=== PATIENT | female | born 1955 | race Caucasian/White ===

== ENCOUNTER 2024-02-14 11:27 | Emergency (ER) | payer MEDICARE, OTHER, SELFPAY ==
[2024-02-14] VITALS (9 sets, daily range): BP systolic 129–163; BP diastolic 52–65; PULSE 89–98; RESP 9–16; TEMP 36.6–36.7; O2SAT 94–99; BMI 26.6
--- NOTE | ~2024-02-14 | XR_ITS ---
EXAMINATION: XR WRIST, LEFT CLINICAL INFORMATION: Fall COMPARISON: None available. TECHNIQUE: PA, lateral, and oblique views of the left wrist. FINDINGS: There is a transverse impacted displaced fracture of the left distal radius. The radial shaft is displaced dorsally and radially with respect to the more proximal radial shaft. There is a minimally displaced ulnar styloid fracture. Carpal bones are normal. There is overlying soft tissue swelling. XR/XR wrist LT min 3V IMPRESSION: Left distal radius and ulnar styloid fractures.
--- NOTE | ~2024-02-14 | XR_ITS ---
EXAMINATION: XR WRIST, LEFT CLINICAL INFORMATION: Post reduction, left wrist COMPARISON: Same date at 12:35 PM TECHNIQUE: PA and lateral views of the left wrist. FINDINGS: Cast material is in place. There is improved alignment of the distal radial fracture with decreased volar tilt of the distal radial articular surface. There is persistent impaction at the transverse fracture line with slight radial displacement of the distal fracture fragment as well as loss of radial inclination. Neutral ulnar variance. Ulnar styloid fracture displacement is slightly improved. Bones are osteopenic. 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 Soft tissues are swollen. XR/XR wrist LT 2V IMPRESSION: Improved alignment of the distal radial fracture status post closed reduction and casting.
--- NOTE | 2024-02-14 11:32 | ED.GENADULT ---
HPI - General Adult General Chief complaint: Extremity Injury, Upper Stated complaint: fall inj l wrist Time Seen by Provider: 02/14/24 12:02 Source: patient and family (Brother) Mode of arrival: ambulatory Limitations: no limitations History of Present Illness HPI narrative: This is a 69-year-old female presenting with severe left-sided wrist pain, patient reports she tripped on the sidewalk, fell forward and landed on both her hands, outstretched in front of her. She did not hit her head or lose consciousness. She reports severe left-sided wrist pain and she reports that her left wrist appears distorted. She has not on blood thinners. Denies numbness, tingling. She has fractured her right wrist before however not her left. Patient is right-hand dominant. Denies chest pain, shortness breath, nausea, vomiting, headache, vision changes, dizziness, weakness, preceding symptoms to fall Related Data Previous Rx's ?Medication ?Instructions ?Recorded acetaminophen 650 mg 650 mg PO Q8H PRN pain (scale 02/14/24 tablet,extended release (Tylenol 8 score 4-6) #30 tabs Hour) morphine 15 mg immediate release 15 mg PO Q6H PRN pain 5 days #10 02/14/24 tablet tabs Allergies Allergy/AdvReac Type Severity Reaction Status Date / Time No Known Allergies Allergy Verified 02/14/24 11:35 Review of Systems Review of Systems: Yes all other systems are reviewed and are negative [facility] Past Medical History Attestation statement: The following information was validated with the patient. Source: old records reviewed and nursing notes reviewed Social History Social History Advance Directives: Yes Advance Directives Information Provided: No Advance Directives on File: No Physical Exam ED Vital Signs: Vital Signs - 24 hr 02/14/24 11:29 02/14/24 13:57 02/14/24 14:06 Temperature 97.9 F 97.8 F 97.8 F Pulse Rate 98 92 Respiratory Rate 16 12 Blood Pressure 163/65 H 149/64 H Pulse Oximetry 94 99 Oxygen Delivery Method Room Air Room Air 02/14/24 14:11 02/14/24 14:22 02/14/24 14:25 Temperature 98.0 F Pulse Rate 98 90 89 Respiratory Rate 12 9 L 11 L Blood Pressure 144/58 H 143/58 H 145/61 H Pulse Oximetry 99 98 99 Oxygen Delivery Method Room Air 02/14/24 14:34 Temperature Pulse Rate 91 Respiratory Rate 12 Blood Pressure 129/52 L Pulse Oximetry 95 Oxygen Delivery Method BMI result Body Mass Index 26.6 vss Appearance: Alert.? Oriented X3.? No acute distress.? Head: Normocephalic, atraumatic, no step-offs or deformities Eyes: Pupils equal, round and reactive to light.? ENT: Pharynx normal.? Patent airway Neck: Normal inspection.? Neck supple.? CVS: Normal heart rate and rhythm.? Pulses normal.? Respiratory: No respiratory distress.? Breath sounds normal.? Abdomen: Soft and nontender.? Skin: Skin warm and dry.? Normal skin color.? Normal skin turgor.? Extremities: No lower extremity edema.? 5/5 strength to bilateral upper and lower extremities 2+ radial pulses equal bilateral. Left wrist with dorsal angulation and evident hematoma overlying the dorsal aspect of wrist. Full range of motion to bilateral digits, full range of motion to right wrist, left wrist with limited range of motion secondary to pain. No wrist drop b/l Back: No midline tenderness, no C-spine tenderness, full range of motion, no CVA tenderness bilaterally Neuro: Oriented X 3.? No motor deficit.? No sensory deficit. CN 2-12 intact . Patient ambulating with steady gait normal coordination Course Course Course Narrative: This is an RME: Additional HPI, ROS, PE not included below will be deferred to primary provider. This is a [id number]-female, with hypertension, hyperlipidemia, and presenting to the ER with a complaint of left wrist pain s/p mechanical fall today. Patient states that she tripped and fell onto her outstretched left hand. There is a obvious deformity to her left wrist. Radial pulse palpated. Distal sensation circulation intact. No LOC no head strike. She has not on blood thinners. Further ER evaluation needed. Spoke to charge nurse who located a available bed, patient will be brought back as soon as possible. X-ray will be obtained. Plan: xray left wrist Reevaluation(s) Reevaluation #1: I did share images with ortho recommends reduction and then to place patient in a sugar-tong splint. Time: 12:56 Reevaluation #2: Xray results L distal radius and ulnar stylodid fx to L side. Will do conscious sedation w/ propofol Time: 13:56 Reevaluation #3: X-ray improved alignment of the distal radial fracture status post closed reduction and casting. Patient feeling better. Sling applied to affected extremity. Patient to be discharged home with morphine. She is alert and oriented x4. Tolerating p.o.. at the bedside. Educated patient on diagnosis and treatment plan, answered all question, patient verbalizes understanding. At this time patient will be discharged home, advised to return with new or worsening symptoms. Educated on worrisome signs and symptoms and when to return. At this time I feel comfortable discharge home. Time: 16:07 Medications Administered Discontinued Medications Generic Name Dose Route Start Last Admin Trade Name Opal PRN Reason Stop Dose Admin Morphine Sulfate 4 mg 02/14/24 12:15 02/14/24 13:09 Morphine Sulfate 4 Mg/Ml Cartridge IVPUSH 02/14/24 12:16 4 mg ONCE ONE Administration Protocol Propofol 200 mg 02/14/24 12:14 02/14/24 14:15 Propofol 200 Mg/20 Ml Vial IVPUSH 02/14/24 12:15 75 mg ONCE ONE Administration Medical Decision Making Medical Decision Making MDM Narrative: 69-year-old female presents with left wrist pain status post trip and fall prior to arrival Physical exam significant for ? 5/5 strength to bilateral upper and lower extremities 2+ radial pulses equal bilateral. Left wrist with dorsal angulation and evident hematoma overlying the dorsal aspect of wrist. Full range of motion to bilateral digits, full range of motion to right wrist, left wrist with limited range of motion secondary to pain. No wrist drop b/l History and physical exam concerning for fracture and dislocation of left wrist. No signs of neurovascular compromise or acute threat to limb. No signs of trauma to head, neck, chest, abdomen or pelvis. No evidence of arterial or venous occlusion. Plan at this time imaging basic labs. Patient will likely require conscious sedation for reduction. I did do all the paperwork with patient and she verbalizes understanding of this and gives consent. Written consent will be placed in patient's chart. Differential Diagnosis Differential Diagnoses: The differential diagnosis associated with the presentation includes History and physical exam concerning for fracture and dislocation of left wrist. No signs of neurovascular compromise or acute threat to limb. No signs of trauma to head, neck, chest, abdomen or pelvis. No evidence of arterial or venous occlusion. Admission/Observation Consideration of admission/observation: Escalation of care including admission/observation considered Unlikely Consult Healthcare Provider Management of the patient was discussed with: Plant Production Worker (Ortho) Lab Data [facility] Lab Attestation statement: I reviewed the patient's lab results. 02/14/24 12:51 02/14/24 12:51 Labs: Lab Results 02/14/24 Range/Units 12:51 WBC 8.0 (4.8-10.8) X10*3/uL RBC 4.69 (4.20-5.50) X10*6/uL Hgb 13.4 (12.0-16.0) g/dl Hct 40.8 (37.0-47.0) % MCV 87.0 (80.0-98.0) fL MCH 28.6 (27.0-33.0) pg MCHC 32.8 (31.0-35.0) g/dl RDW 13.0 (11.0-16.0) % Plt Count 343 (160-400) X10*3/uL MPV 9.1 L (9.4-12.3) fL Immature Gran % (Auto) 0.4 (0.0-0.4) % Neut % (Auto) 65.4 (45-73) % Lymph % (Auto) 24.2 (20-40) % [place] % (Auto) 7.0 (2-11) % Eos % (Auto) 2.4 (0-4) % Baso % (Auto) 0.6 (0-2) % Lymph # (Auto) 1.9 (1.2-4.9) X10*3/uL [place] # (Auto) 0.6 (0.1-1.2) X10*3/uL Eos # (Auto) 0.2 (0.0-0.4) X10*3/uL Baso # (Auto) 0.1 (0.0-0.2) X10*3/uL Abs Immat Gran (auto) 0.03 (0.00-0.03) X10*3/uL Absolute Neuts (auto) 5.2 (2.0-8.3) x10*3/uL Absolute Nucleated RBC 0.000 (0.0-0.012) X10*3/uL Nucleated RBC % (auto) 0.0 (0.0-0.2) /100WBC PT 12.7 (11.1-13.3) SEC INR 1.0 (0.9-1.1) Sodium 139 (135-145) mmol/L Potassium 3.8 (3.3-5.1) mmol/L Chloride 106 (96-108) mmol/L Carbon Dioxide 22 (22-29) mmol/L Anion Gap 15 (12-20) BUN 15 (9-16) mg/dL Creatinine 0.76 (0.5-1.4) mg/dL Estim Creat Clear Calc 62.8 Estimated GFR > 60 Random Glucose 115 (60-115) mg/dL Calcium 9.8 (8.4-10.2) mg/dL Total Bilirubin 0.3 (0.0-1.0) mg/dL AST 18 (5-31) U/L ALT 14 (0-31) U/L Alkaline Phosphatase 94 (39-117) U/L Total Protein 8.2 H (6.5-8.0) g/dL Albumin 4.0 (3.5-5.0) g/dL Independent Interpretation I performed an independent interpretation of an: Plain X-Ray (XR/XR wrist LT min 3V IMPRESSION: Left distal radius and ulnar styloid fractures. ) Radiology Impression Discussion of test interpretation with radiology: I have reviewed the radiologist's reading. Independent Historian Clinical information obtained from an independent historian. History obtained from or confirmed by: Other (Brother) Prescription Management I considered prescription management with: Other (Morphine A narcotic has been sent to your pharmacy please take this as prescribed. Do not take more than the prescribed dose. Narcotic medications can cause addiction. Please do not mix them with alcohol. Do not take them while driving or operating machinery. Do not take them with any other raghavendra) Chronic Conditions Patient?s care impacted by: Hypertension Critical Care Time Critical Care Time Critical Care Time: Yes Total Critical Care Time: 60 Attestation: I attest to this time spent taking care of the patient, obtaining history, physical, reviewing labs, imaging, speaking to my attending, specialist or hospitalist. Discharge Plan Discharge Clinical Impression: Fracture of left wrist, Dislocation of left wrist Patient Disposition: Home, Self-Care Instructions: Wrist Injury (ED), Wrist Fracture in Adults (ED) Additional Instructions: Take your medications as prescribed. If you were prescribed antibiotics today, it is important that you take your medication to their entirety, do not skip any doses, do not finish them early. Follow-up with your primary care provider this week. Return to the emergency department with new or worsening symptoms. Such as fevers, chills, chest pain, shortness of breath, nausea, vomiting, dizziness, headache, vision changes, lethargy In case of emergency call 911 Follow up with orthopedics in a day or two. Return with worsening pain, swelling or inability to move fingers. A narcotic has been sent to your pharmacy please take this as prescribed. Do not take more than the prescribed dose. Narcotic medications can cause addiction. Please do not mix them with alcohol. Do not take them while driving or operating machinery. Do not take them with any other narcotics. Do not share them with friends or family. They can cause constipation. Take them only for severe pain. You can take Tylenol as needed for pain with morphine. XR/XR wrist LT min 3V IMPRESSION: Left distal radius and ulnar styloid fractures. XR/XR wrist LT 2V IMPRESSION: Improved alignment of the distal radial fracture status post closed reduction and casting. Prescriptions: New morphine 15 mg tablet 15 mg PO Q6H PRN (Reason: pain) 5 Days Qty: 10 0RF Rx Instructions: Partial Fill upon patient request. acetaminophen [Tylenol 8 Hour] 650 mg tablet extended release 650 mg PO Q8H PRN (Reason: pain (scale score 4-6)) Qty: 30 0RF Referrals: [facility] [place] [facility] [Provider Group] - 2 days Physician,Unknown J [Primary Care Provider] - 2 days Stand Alone Forms: Work/School Release Print Language: Khmer
[2024-02-14 12:54] LABS: MANUAL DIFF FLAG NO
[2024-02-14 12:55] LABS: Basophils Absolute Auto 0.1 X10*3/uL (0.0-0.2); Basophils Percent Auto 0.6 % (0-2); Eosinophils Absolute Auto 0.2 X10*3/uL (0.0-0.4); Eosinophils Percent Auto 2.4 % (0-4); Hematocrit 40.8 % (37.0-47.0); Hemoglobin 13.4 g/dl (12.0-16.0); Imm Gran Abs Auto 0.03 X10*3/uL (0.00-0.03); Imm Gran Pct Auto 0.4 % (0.0-0.4); Lymphocytes Absolute Auto 1.9 X10*3/uL (1.2-4.9); Lymphocytes Percent Auto 24.2 % (20-40); Mean Corpuscular HGB Conc 32.8 g/dl (31.0-35.0); Mean Corpuscular Hemoglobin 28.6 pg (27.0-33.0); Mean Platelet Volume 9.1 fL (9.4-12.3); Monocytes Absolute Auto 0.6 X10*3/uL (0.1-1.2); Neutrophils Absolute Auto 5.2 x10*3/uL (2.0-8.3); Neutrophils Percent Auto 65.4 % (45-73); Platelet Count 343 X10*3/uL (160-400); Red Blood Count 4.69 X10*6/uL (4.20-5.50)
[2024-02-14 13:01] LABS: Prothrombin Time 12.7 SEC (11.1-13.3)
[2024-02-14] MEDS: Morphine Sulfate 4 MG/ML CARTRIDGE IVPUSH (13:09)
[2024-02-14 13:16] LABS: Alanine Aminotransferase 14 U/L (0-31); Alkaline Phosphatase 94 U/L (39-117); Anion Gap 15 (12-20); Aspartate Amino Transferase 18 U/L (5-31); Bilirubin Total 0.3 mg/dL (0.0-1.0); Blood Urea Nitrogen 15 mg/dL (9-16); Calcium 9.8 mg/dL (8.4-10.2); Carbon Dioxide 22 mmol/L (22-29); Chloride 106 mmol/L (96-108); Creatinine Clr Calc Pharmacy 62.8; Estimated Glomerular Filt Rate > 60; Glucose Random 115 mg/dL (60-115); Potassium 3.8 mmol/L (3.3-5.1); Sodium 139 mmol/L (135-145); Total Protein 8.2 g/dL (6.5-8.0)
[2024-02-14] MEDS: propofoL 200 MG/20 ML VIAL IVPUSH (14:15)
--- NOTE | 2024-02-14 14:37 | PC.NURSE ---
patient had left wrist reduction done by DR mcfarlane and YE wilson, patient tolerated procedure well, given a total of 75 mg of propofol medicated under doctors orders and per MAR. patient is awake and alert x4, patient no longer on supplemental oxygen. oxygen saturation is 99% on room air.
[2024-02-14] MEDS: Diphth,Pertus(ACell),Tet Adult 0.5 ML SYRINGE IM (16:38)
== END 2024-02-14 18:32 | disposition home or self-care (01) ==
PROVIDERS: Physician Assistant; Emergency Provider Emergency Medicine Emergency Medical Services
DX: S62.102A Fracture of unspecified carpal bone, left wrist, initial encounter for closed fracture (principal); S60.512A Abrasion of left hand, initial encounter; S60.511A Abrasion of right hand, initial encounter; M25.532 Pain in left wrist; R23.3 Spontaneous ecchymoses; W18.30XA Fall on same level, unspecified, initial encounter; Y93.9 Activity, unspecified; Y99.8 Other external cause status; Y92.480 Sidewalk as the place of occurrence of the external cause; Z23 Encounter for immunization; Z79.899 Other long term (current) drug therapy
CPT/HCPCS: 29125; 36415; 73100; 73110; 80053; 85025; 85610; 90471; 90715; 96374; 96375; 99283; 99284; J2270; J2704